=== PATIENT | male | born 1970 | race Caucasian/White ===

== ENCOUNTER 2022-07-30 17:46 | Emergency (ER) | payer OTHER ==
[2022-07-30] MEDS ORDERED: BACTRIM DS TAB1 EACH PO ×2 (20:12→20:13)
== END 2022-07-30 20:10 | disposition home or self-care (01) ==
LOC: FER 17:46
DX: S81.832A Puncture wound without foreign body, left lower leg, initial encounter (principal); E11.9 Type 2 diabetes mellitus without complications; Z23 Encounter for immunization; Z88.0 Allergy status to penicillin; Z88.5 Allergy status to narcotic agent; Z88.8 Allergy status to other drugs, medicaments and biological substances; W45.0XXA Nail entering through skin, initial encounter; Y92.009 Unspecified place in unspecified non-institutional (private) residence as the place of occurrence of the external cause
CPT/HCPCS: 73590; 90471; 90715